=== PATIENT | male | born 1965 | race Caucasian/White ===

== ENCOUNTER 2019-02-11 04:08 | Outpatient (RCR) | payer BC, SELFPAY ==
[2019-02-11 07:43] LABS: Anion Gap 7.4 mmol/L (3-11); BUN 19 mg/dL (7-18); CO2 27.6 mmol/L (21.0-32.0); CREATININE 1.08 mg/dL (0.70-1.30); Calcium 8.4 mg/dL (8.5-10.1); Calculated LDL 138 mg/dL; Chloride 106 mmol/L (98-107); Cholesterol 208 mg/dL (50-200); Glucose 101 mg/dL (70-100); HDL Cholesterol 55 mg/dL (40-60); Sodium 141 mmol/L (136-145); Triglyceride 79 mg/dL (30-150)
[2019-02-12 12:37] LABS: HIV-1/2 Ag & Ab Screen Negative (NEGAT)
[2019-02-14 11:18] LABS: PSA, Screening 1.7 ng/ml (0-3.5)
== END 2019-03-02 23:59 | disposition home or self-care (01) ==
LOC: INF 04:08
PROVIDERS: PCP Internal Medicine; Visit Provider Internal Medicine
DX: Z00.00 Encounter for general adult medical examination without abnormal findings (principal); Z11.4 Encounter for screening for human immunodeficiency virus [HIV]; Z12.5 Encounter for screening for malignant neoplasm of prostate
CPT/HCPCS: 36415; 80048; 80061; 83721; 84153; 87389; 86702

== ENCOUNTER 2022-02-19 06:41 | Outpatient (RCR) | payer OTHER, SELFPAY ==
--- OUTSIDE RECORDS SUMMARY | 2022-02-19 06:44 | XMS_ITS | Encounter Summary ---
:1965 Author Organization [facility] Address [address] [place] [address] Care Team Providers Name Role Phone Zuleima Malone MD Primary Care Provider [phone] Reason for Visit Reason Onset Date Comments Results 02/18/2019 Encounter Details Date Type Department Care Team Description 02/18/2019 Orders Only [facility] Susan, Screening for HIV (human immunodeficiency virus); Adult Primary Care - BUSTER Gardner Screeni ng for prostate cancer; Nir Encounter for preventive hea lt examination [address] [place] [address] Social History Tobacco Use Types Packs/Day Years Used Date Never Smoker Smokeless Tobacco: Former User Chew Q uit: 2008 Alcohol Use Standard Drinks/Week Comments Yes 0 (1 standard drink = 0.6 oz pure alcoho l) less than one a week Alcohol Habits Answer Date Recorded How often do you have a drink containing alcohol? Monthly or less 02/02/2019 How many drinks containing alcohol do you have on 1 or 2 02/02/2019 a typical day when you are drinking? How often do you have six or more drinks on one Never 02/02/2019 occasion? Comment: less than one a week 02/02/2019 Financial Resource Strain Answer Date Recorded How hard is it for you to pay for the very basics like Not h harjeet at all 02/12/2022 food, housing, medical care, and heating? Food Insecurity Answer Date Recorded Within the past 12 months, you worried that your food would Never true 02/12/2022 run out before you got money to buy more. Within the past 12 months, the food you bought just didn't N ever true 02/12/2022 last and you didn't have money to get more. Transportation Needs Answer Date Recorded In the past 12 months, has lack of transportation kept you f rom No 02/12/2022 medical appointments or from getting medications? In the past 12 months, has lack of transportation kept you f rom No 02/12/2022 meetings, work, or getting things needed for daily living? Housing Stability Answer Date Recorded In the last 12 months, was there a time when you were not ab le No 02/12/2022 to pay the mortgage or rent on time? In the last 12 months, how many places have you lived? 1 02/12/2022 In the last 12 months, was there a time when you did not hav e a No 02/12/[address] or slept in a correction (including now)? Sex Assigned at Date Recorded Male 08/28/2021 15:55 EST documented as of this encounter Functional Status Cognitive Status Response Date of Assessment Because of a physical, mental, or emotional condition, No 02/02/2019 does this person have serious difficulty concentrating, remembering, or making decisions? documented as of this encounter Progress Notes Kendra Davis LPN - 02/18/2019 1412 EDT Enter/edit documented in this encounter Plan of Treatment Upcoming Encounters Date Type Specialty Care Team Description 02/20/2022 Office Visit General Internal Medicine Zuleima Malone MD [address] [place] [phone] (Wo rk) documented as of this encounter Procedures Procedure Name Priority Date/Time Associated Diagnosis Comme nts HIV 1/2 ANTIGEN AND Routine 02/11/2019 Results for this ANTIBODY, 4TH procedure are in the GENERATION results section . PSA SCREEN Routine 02/11/2019 Results for thi s procedure are i n the results section . LIPID PROFILE (INCLUDES Routine 02/11/2019 Resu lts for this CHOLESTEROL, procedure are i n the TRIGLYCERIDES, HDL, results section. LDL) BASIC METABOLIC PANEL Routine 02/11/2019 Result s for this (BMP) procedure are i n the results section . documented in this encounter Results LIPID PROFILE (INCLUDES CHOLESTEROL, TRIGLYCERIDES, HDL, LDL) (02/11/2019) Pathologist Sig nature Cholesterol, External 208 [facility] Triglycerides, 79 [facility] HDL, External 55 [facility] LDL, External 138 [facility] Chol/HDL Ratio, [facility] Fasting?, External [facility] Specimen Blood specimen (specimen) Performing Organization Address [facility] Phon e Number [facility] PSA SCREEN (02/11/2019) Pathologist Sig nature PSA, External 1.7 [facility] Specimen Blood specimen (specimen) Performing Organization Address [facility] Phon e Number [facility] HIV 1/2 ANTIGEN AND ANTIBODY, 4TH GENERATION (02/11/2019) Pathologist Sig nature Hiv Ab, External Negative [facility] Specimen Blood specimen (specimen) Performing Organization Address [facility] Phon e Number [facility] BASIC METABOLIC PANEL (BMP) (02/11/2019) Pathologist Sig nature GFR, Calculated, >60 [facility] Glucose, Serum, 101 [facility] Calculated Calcium, [facility] BUN, External 19 [facility] Calcium, External 8.4 [facility] Chloride, External 106 [facility] CO2, External 27.6 [facility] Creatinine, External 1.08 [facility] Fasting?, External [facility] Potassium, External 4.0 [facility] Sodium, External 141 [facility] Specimen Blood specimen (specimen) Performing Organization Address [facility] Phon e Number [facility] documented in this encounter Visit Diagnoses Diagnosis Screening for HIV (human immunodeficienc y virus) Special screening examination for other specified viral diseases Screening for prostate cancer Special screening for malignant neoplasm of prostate Encounter for preventive health examinat ion Routine general medical examination at a health care facility documented in this encounter Care Teams Director News Relationship Specialty Start Date End Date Zuleima Malone MD PCP - General 09/06/[address] [place] [phone] documented as of this encounter
--- OUTSIDE RECORDS SUMMARY | 2022-02-19 06:44 | XMS_ITS | Encounter Summary ---
:1965 Author Organization [facility] Address [address] [place] [address] Care Team Providers Name Role Phone Zuleima Malone MD Primary Care Provider [phone] Reason for Referral Laboratory Services (Routine) - New Request Specialty Diagnoses / Procedures Referred By Contact Refer red To Contact Diagnoses Screening for prostate cancer Zuleima Malone MD Procedures PSA SCREEN [address] [place] [address] Referral ID Status Reason Start Date Expiration Date Visits V isits Requested Authorized [id number] New Request 02/02/2019 1 1 aboratory Services (Routine) - New Request Specialty Diagnoses / Procedures Referred By Contact Refer red To Contact Diagnoses Screening for HIV (human immunodeficiency virus) Zuleima Malone, Procedures HIV 1/2 ANTIGEN AND ANTIBODY, 4TH GENERATION MD [address] [place] [address] Referral ID Status Reason Start Date Expiration Date Visits V isits Requested Authorized [id number] New Request 02/02/2019 1 1 aboratory Services (Routine) - New Request Specialty Diagnoses / Procedures Referred By Contact Refer red To Contact Diagnoses Encounter for preventive health examination Zuleima Malone MD Procedures BASIC METABOLIC PANEL (BMP) [address] [place] [address] Referral ID Status Reason Start Date Expiration Date Visits V isits Requested Authorized [id number] New Request 02/02/2019 1 1 aboratory Services (Routine) - New Request Specialty Diagnoses / Procedures Referred By Contact Refer red To Contact Diagnoses Encounter for preventive health examination Zuleima Malone MD Procedures LIPID PROFILE (INCLUDES CHOLESTEROL, TRIGLYCERIDES, HDL, LDL) [address] [place] [address] Referral ID Status Reason Start Date Expiration Date Visits V isits Requested Authorized [id number] New Request 02/02/2019 1 1 Reason for Visit Reason Comments New Patient Visit Encounter Details Date Type Department Care Team Description 02/02/2019 Office Visit [facility] Zuleima Malone Need for owjbfsgvlb-zsmdsoe-imlfsehii (Tdap) vaccine (Primary Dx); Adult Primary Care - MD Joy Encounter for preventive health examinat ion; [address] Screening for HIV (human imm unodeficiency virus); [address] [place] [address] Screening for prostate cancer [place], [place] [address] [place] [address] [phone] Social History Tobacco Use Types Packs/Day Years Used Date Never Smoker Smokeless Tobacco: Former User Chew Q uit: 2008 Tobacco Cessation: Counseling Given: No Alcohol Use Standard Drinks/Week Comments Yes 0 [...] place to sleep or slept in a half-way (including now)? Sex Assigned at Date Recorded Male 08/28/2021 15:55 EST documented as of this encounter Last Filed Vital Signs Vital Sign Reading Time Taken Comments Blood Pressure 123/69 02/02/2019 1325 EDT Pulse 66 02/02/2019 1325 EDT Temperature 36.6 ??C (97.8 ??F) 02/02/2019 1325 EDT Respiratory Rate 12 02/02/2019 1325 EDT Oxygen Saturation - - Inhaled Oxygen Concentration - - Weight 89.3 kg (196 lb 12.8 oz) 02/02/2019 1325 EDT Height 182.9 cm (6') 02/02/2019 1325 EDT Body Mass Index 26.69 02/02/2019 1325 EDT documented in this encounter Functional Status Cognitive Status Response Date of Assessment Because of a physical, mental, or emotional condition, No 02/02/2019 does this person have serious difficulty concentrating, remembering, or making decisions? documented as of this encounter Patient Instructions Patient InstructionsZuleima Malone MD, - 02/02/2019 13:15 EDT Let me know about referral for colonoscopy Fasting blood work Shingles vaccine at the pharmacy Follow-up in two years documented in this encounter Progress Notes Zuleima Malone MD, MD - 02/02/2019 1315 EDT Male Adult Preventative Care Visit Patient ID: Ousmane Hutson is an 53 y.o. male. Subjective: HISTORY OF PRESENT ILLNESS: Here for to establish care. Patient profile: he is with three children and lives in [place], [place]. He works in sales at [employer]. He does not smoke and does not drink alcohol regularly. He gets physical activity at work. He has not particular problems to report today. He has no significant past medical history and has never had any surgery. Social History Tobacco Use ??? Smoking status: Never Smoker ??? Smokeless tobacco: Former User Types: Chew Substance Use Topics ??? Alcohol use: Yes Frequency: Monthly or less Drinks per session: 1 or 2 Binge frequency: Never ??? Drug use: Not on file No family history on file. No Known Allergies Current Outpatient Medications: Multivitamins with Minerals tablet tablet TURMERIC ORAL VITAMIN B COMPLEX ORAL No current facility-administered medications for this visit. Review of Systems Constitutional: Negative for chills, diaphoresis, fever and malaise/fatigue. Eyes: Negative for blurred vision and double vision. Respiratory: Negative for cough and shortness of breath. Cardiovascular: Negative for chest pain and palpitations. Gastrointestinal: Negative for abdominal pain, blood in stool, diarrhea, heartburn, melena and nausea. Genitourinary: Negative for dysuria and hematuria. Musculoskeletal: Negative for joint pain. Skin: Negative for rash. Neurological: Negative for dizziness and headaches. Psychiatric/Behavioral: Negative for depression. Objective: BP 123/69 Pulse 66 Temp 36.6 ??C (97.8 ??F) (Tympanic) Resp 12 Ht 182.9 cm (72) Wt 89.3 kg (196 lb 12.8 oz) BMI 26.69 kg/m?? Body mass index is 26.69 kg/m??. Physical Exam General: well-developed, well-nourished male HEENT: oral mucosa and pharynx moist and without lesions. Tympanic membranes visualized and with an intact light reflex. Sclerae clear and non-icteric. Neck: no lymphadenopathy or thyromegaly Lungs: clear in all lung sargent Cardiac: regular and without murmur or gallop Axillary: no lymphadenopathy Abdomen: soft, non-tender, no masses. No hepatomegaly or abdominal bruit. : Normal sexual development. Rectal: normal rectal tone. Prostate is without nodules. Extremities: no cyanosis or edema Skin: no rashes Assessment: Very healthy 53 year old male here for a wellness visit and to establish care. He is due for a Tdap vaccine: given today. He will also be eligible for a shingles vaccine when it becomes available. He has never had a colonoscopy. He would prefer to have this done at [facility] but will talk this over with his to choose a provider Fasting blood work ordered for lipids, PSA, and lipids. Plan: As above Follow-up in two years for an HME or as needed. References: USPTF Level A & B Recommendations List USPTF Adult Recommendations USPTF Breast Cancer Screening USPTF Cervical Cancer Screening USPTF Colorectal Cancer Screening CDC Adult Immunizations 2010 CDC 7-18 Years Immunizations 2010 AA Clinical Recommendations documented in this encounter Plan of Treatment Upcoming Encounters Date Type Specialty Care Team Description 02/20/2022 Office Visit General Internal Medicine Zuleima Malone MD [address] [place] [phone] (Wo rk) documented as of this encounter Visit Diagnoses Diagnosis Need for sbpcwpanrm-ugciaoo-wcfdmyklo (T dap) vaccine - Primary Need for prophylactic vaccination with c ombined ktdtmnngyh-lekxxkd-vdsoxeovj (DTP) vaccine Encounter for preventive health examinat ion Routine general medical examination at a health care facility Screening for HIV (human immunodeficienc y virus) Special screening examination for other specified viral diseases Screening for prostate cancer Special screening for malignant neoplasm of prostate documented in this encounter Historical Medications This list may reflect changes made after this encounter. Medication Sig Dispensed Refills Start Date End Date VITAMIN B COMPLEX ORAL Take by mouth. 0 TURMERIC ORAL Take by mouth. 0 Multivitamins with Minerals Take 1 Tab by mouth 0 tablet tablet daily. added in this encounter Orders Lab Orders Without Results Count Last Ordered Date st Ordered Date BASIC METABOLIC PANEL (BMP) 1 02/02/2019 HIV 1/2 ANTIGEN AND ANTIBODY, 4TH 1 02/02/2019 GENERATION LIPID PROFILE (INCLUDES CHOLESTEROL, 02/02/2019 TRIGLYCERIDES, HDL, LDL) PSA SCREEN 02/02/2019 Immunization/Injection Count Last Ordered Date First O rdered Date TDAP VACCINE =>7YO IM 1 02/02/2019 documented in this encounter Care Teams Reprint Sorter Relationship Specialty Start Date End Date Zuleima Malone MD PCP - General 09/06/[address] [place] [phone] documented as of this encounter
--- OUTSIDE RECORDS SUMMARY | 2022-02-19 06:44 | XMS_ITS | Encounter Summary ---
:1965 Author Organization [facility] Address [address] [place] [address] Care Team Providers Name Role Phone Zuleima Malone MD Primary Care Provider [phone] Reason for Visit Reason Onset Date Comments Appointment Related 01/27/2022 Encounter Details Date Type Department Care Team Description 01/27/2022 Telephone [facility] Adult Zuleima Malone Olivia ointment Related Primary Care - Carlos Hamilton MD [address] [facility] [address] [place] [address] [place], [place] [phone] (Wo rk) Social History Tobacco Use Types Packs/Day Years [...] place to sleep or slept in a skilled nursing (including now)? Sex Assigned at Date Recorded Male 08/28/2021 15:55 EST documented as of this encounter Functional Status Cognitive Status Response Date of Assessment Because of a physical, mental, or emotional condition, No 02/02/2019 does this person have serious difficulty concentrating, remembering, or making decisions? documented as of this encounter Miscellaneous Notes Telephone Encounter - Isabela Go - 01/27/2022 1608 EDT Lab orders for: HEP C; CMP; Lipid Profile; PSA faxed to [facility] per patient request. 01/27/2022. documented in this encounter Plan of Treatment Upcoming Encounters Date Type Specialty Care Team Description 02/20/2022 Office Visit General Internal Medicine Zuleima Malone MD [address] [place] [phone] (Wo rk) documented as of this encounter Visit Diagnoses Not on filedocumented in this encounter Care Teams Ginner Relationship Specialty Start Date End Date Zuleima Malone MD PCP - General 09/06/18 [address] [place] [phone] documented as of this encounter
--- OUTSIDE RECORDS SUMMARY | 2022-02-19 06:44 | XMS_ITS | Encounter Summary ---
:1965 Author Organization [facility] Address [address] [place] [address] Care Team Providers Name Role Phone Zuleima Malone MD Primary Care Provider [phone] Reason for Visit Reason Onset Date Comments Labs Only 01/24/2022 Encounter Details Date Type Department Care Team Description 01/24/2022 Orders Only [facility] Zuleima Malone Encounter for preventive care (Primary Dx); Adult Primary Care - MD Joy Prostate cancer screening; [place] [address] [facility] for hepatitis C sc reening test for low risk patient [address] [place] [address] [place], [place] [phone] Social History Tobacco Use Types Packs/Day [...] place to sleep or slept in a care home (including now)? Sex Assigned at Date Recorded Male 08/28/2021 15:55 EST documented as of this encounter Functional Status Cognitive Status Response Date of Assessment Because of a physical, mental, or emotional condition, No 02/02/2019 does this person have serious difficulty concentrating, remembering, or making decisions? documented as of this encounter Plan of Treatment Upcoming Encounters Date Type Specialty Care Team Description 02/20/2022 Office Visit General Internal Medicine Zuleima Malone MD [address] [place] [phone] (Wo rk) Scheduled Orders Name Type Priority Associated Diagnoses Order S chedule LIPID PROFILE (INCLUDES Lab Routine Encounter for Exp ected: 01/27/2022 CHOLESTEROL, TRIGLYCERIDES, preventive ca re (Approximate), HDL, LDL) Expires: 2022 COMPREHENSIVE METABOLIC Lab Routine Encounter for Exp ected: 01/27/2022 PANEL (CMP) preventive care (Approximate ), Expires: 2022 PSA SCREEN Lab Routine Prostate cancer Expected: screening (Approximate), Expires: 2022 HEPATITIS C AB W REFLEX TO Lab Routine Encounter for hepatitis Expected: 01/27/2022 HCV RNA BY PCR C screening test for (Appr oximate), low risk patient Expires: documented as of this encounter Visit Diagnoses Diagnosis Encounter for preventive care - Primary Prostate cancer screening Special screening for malignant neoplasm of prostate Encounter for hepatitis C screening test for low risk patient documented in this encounter Care Teams Video Camera Operator Relationship Specialty Start Date End Date Zuleima Malone MD PCP - General 09/06/[address] [place] [phone] documented as of this encounter
--- OUTSIDE RECORDS SUMMARY | 2022-02-19 06:44 | XMS_ITS | Clinical Summary ---
:1965 Author Organization [facility] Address [address] [place] [address] Care Team Providers Name Role Phone Zuleima Malone MD Primary Care Provider [phone] Allergies No known active allergies Medications Medication Sig Dispensed Refills Start Date End Date Status Multivitamins with Take 1 Tab by 0 Active Minerals tablet tablet mouth daily. TURMERIC ORAL Take by mouth. 0 A ctive VITAMIN B COMPLEX ORAL Take by mouth. 0 Active Active Problems No known active problems Encounters Date Type Specialty Care Team Description 01/27/2022 Telephone General Internal Zuleima Malone Appointment Related Nader Hamilton MD 01/27/2022 Telephone General Internal Zuleima Malone Appointment Related Nader Hamilton MD 01/24/2022 Orders Only General Internal Zuleima Malone Encounter f or preventive care (Primary Dx); Medicine MD Joy Prostate cance r screening; Encounter for h epatitis C screening test for low risk patient from Last 3 Months Immunizations Name Administration Dates Next Due Tdap Vaccine =>7YO IM 02/02/2019 Medical History Medical History Date Comments Childhood asthma Family History Medical History Relation Name Comments Coronary Artery Disease Father at age 75 a few months after CABG Dementia Mother Lewy Dementia, d eveloped around age 75 No Known Sister Kendra Relation Name Status Comments Father Mother Alive Sister Kendra Alive Social History Tobacco Use Types Packs/Day Years [...] place to sleep or slept in a detention (including now)? Sex Assigned at Date Recorded Male 08/28/2021 15:55 EST Last Filed Vital Signs Vital Sign Reading [...] Body Mass Index 26.69 02/02/2019 1325 EDT Plan of Treatment Upcoming Encounters Date Type Specialty Care Team Description 02/20/2022 Office Visit General Internal Medicine Zuleima Malone MD [address] [place] [phone] (Wo rk) Health Maintenance Due Date Last Done Comments Hepatitis C Screen 1965 COVID-19 Vaccine (#1) 03/15/1965 Advance Directive 1982 Barium Enema (Colon Cancer Screening) 2009 Colonoscopy (Colon Cancer Screening) 2009 Colorectal Cancer Screening 2009 Fecal Blood Test (Colon Cancer Screening) 2009 Fecal DNA (Colon Cancer Screening) 2009 Sigmoidoscopy (Colon Cancer Screening) 2009 Shingles Immunization (1 of 2) 2014 Preventive Care Visit 02/02/2021 02/02/2019 Influenza Immunization (Adult) (#1) 2022 Behavioral Health Screen 02/12/2023 02/12/2022, 02/02/2019 Social Determinants Of Health (SDOH) 02/12/2023 02/12/2022, 02/02/2019 Lipid Profile Screening (Cholesterol) 02/12/2024 02/11/2019 Tetanus (Adult) Immunization 02/02/2029 02/02/2019 Pertussis (Adult) Immunization Completed 02/02/2019 HIV Screening Completed 02/11/2019 Care Teams Customer Account Technician Relationship Specialty Start Date End Date Zuleima Malone MD PCP - General 09/06/[address] [place] [phone]
--- OUTSIDE RECORDS SUMMARY | 2022-02-19 06:44 | XMS_ITS | Encounter Summary ---
:[address] [facility] Address [address] [place] [address] Care Team Providers Name Role Phone Zuleima Malone MD Primary Care Provider [phone] Reason for Visit Reason Onset Date Comments Appointment Related 01/27/2022 Encounter Details Date Type Department Care Team Description 01/27/2022 Telephone [facility] Adult Zuleima Malone Olivia ointment Related Primary Care - Carlos Hamilton MD 353 [facility] [address] [place] [address] [place], [place] [phone] (Wo rk) Social History Tobacco Use [...] place to sleep or slept in a alf (including now)? Sex Assigned at Date Recorded Male 08/28/2021 15:55 EST documented as of this encounter Functional Status Cognitive Status Response Date of Assessment Because of a physical, mental, or emotional condition, No 02/02/2019 does this person have serious difficulty concentrating, remembering, or making decisions? documented as of this encounter Miscellaneous Notes Telephone Encounter - Isabela Go - 01/27/2022 2336 EDT Confirmed upcoming appointment with patient on 02/20/2022 at 3:[address] Malone. Asked patientto have fasting labs done prior to the appointment. Please fast for at least 8 hours. You can continue to take your medications, drink plenty of water, and you may have black coffee with no cream or sugar. Patient asked for lab orders to be faxed to [facility] - fax # [phone]. documented in this encounter Plan of Treatment Upcoming Encounters Date Type Specialty Care Team Description 02/20/2022 Office Visit General Internal Medicine Zuleima Malone MD [address] [place] [phone] (Wo rk) documented as of this encounter Visit Diagnoses Not on filedocumented in this encounter Care Teams Padded Products Finisher Relationship Specialty Start Date End Date Zuleima Malone MD PCP - General 09/06/[address] [place] [phone] documented as of this encounter
[2022-02-19 07:13] LABS: ALT 31 U/L (16-63); AST 18 U/L (15-37); Albumin 3.8 g/dL (3.4-5.0); Alkaline Phosphatase 70 U/L (46-116); Anion Gap 6.2 mmol/L (3-11); BUN 27 mg/dL (7-18); Bilirubin, Total 0.5 mg/dL (0.2-1.0); CO2 28.8 mmol/L (21.0-32.0); CREATININE 1.2 mg/dL (0.70-1.30); Calcium 8.1 mg/dL (8.5-10.1); Calculated LDL 119 mg/dL (<100); Chloride 102 mmol/L (98-107); Cholesterol 197 mg/dL (<200); Glucose 90 mg/dL (74-106); HDL Cholesterol 55 mg/dL (40-60); Sodium 137 mmol/L (136-145); Total Protein 7.5 g/dL (6.4-8.2); Triglyceride 117 mg/dL (<150)
[2022-02-19 18:22] LABS: PSA, Screening 2.3 ng/mL (<=3.5)
[2022-02-20 09:39] LABS: Hepatitis C Ab w Rflx HCV PCR Negative (Negative)
[2022-02-21 10:12] LABS: TSH (W/Ref FT4) 1.19 uIU/mL (0.36-3.74)
[2022-02-24 06:10] LABS: Vitamin D 25 Total 38.5 ng/mL (30-100)
== END 2022-03-02 23:59 | disposition home or self-care (01) ==
LOC: INF 06:41
PROVIDERS: PCP Internal Medicine; Visit Provider Internal Medicine
DX: Z11.59 Encounter for screening for other viral diseases (principal); Z00.00 Encounter for general adult medical examination without abnormal findings; Z12.5 Encounter for screening for malignant neoplasm of prostate; E83.51 Hypocalcemia; I49.9 Cardiac arrhythmia, unspecified
CPT/HCPCS: 80053; 80061; 82306; 84153; 86803; 84443

== ENCOUNTER → 2022-03-06 01:43 | Outpatient (CLI) | payer OTHER, SELFPAY ==
--- NOTE | 2022-03-06 15:00 | ETT_ITS ---
APPROVED REPORT Exam: Exercise Treadmill Patient Location: Out-Patient Room/Bed: Stress Nurse: Skylar Garcia RN Ordering Provider:NORA STERN, Contact Number: [phone] BMI: 26.03 Baseline Rhythm: Sinus Rhythm Comment: PVCs Indications: Ventricular bigeminy. Medical History Medical History: Ventricular bigeminy. Cardiac Medications: None Allergies: No known drug allergies Cardiac Risk Factors: Family hx. Previous Cardiac Procedures: None. Pretest Chest Pain Characteristics: None Exercise History: Indeterminate Physical Disabilities: None Lung Sounds: Clear to auscultation Heart Sounds: Irregular Stress Test Details Test: Exercise stress testing was performed using a Benji protocol. Rest Stress HR Resting HR Supine: 65 bpm Max Heart Rate (APMHR): 163 bpm Resting HR Standin bpm Target HR (85% APMHR): 138 bpm Max HR Achieved: 141 bpm % of APMHR: 86 Recovery HR: 83 bpm HR response to stress: Normal HR response to stress Comment: Frequent PVCs BP Resting BP Supine: 128/80 mmHg Resting BP Standin/68 mmHg Max BP: 168/80 mmHg Recovery BP: 138/78 mmHg BP response to stress: Normal blood pressure response to stress. ECG Resting ECG: Sinus Rhythm, Ectopy: PVCs Stress ECG: Sinus Tachycardia ST Change: No significant ST segment changes noted Arrhythmia: NSVT 3 beat run, ventricular bigeminy, VPC's Recovery ECG: Sinus Rhythm Recovery ST Change: No significant ST segment changes noted Recovery Arrhythmia: PVCs, ventricular bigeminy. Clinical Reason for Termination: Target HR Achieved Stress Symptoms: General Fatigue Exercise duration: 11 min01 sec Highest Stage Reached: Stage 4: 4.2 mph at 16% grade. Exercise capacity: 13.48 METs Angina Score: None Rate Pressure Product: [id number] Stress ECG Conclusion 1. Resting electrocardiogram showed voltage for left ventricular hypertrophy 2. Patient exercised on the Benji protocol and completed a workload of 13.48 METS 3. Normal heart rate and blood pressure response to exercise. The patient achieved 88% of predicted heart rate for age 4. The electrocardiographic portion of the test was negative for myocardial ischemia 5. Premature ventricular contractions were noted, including couplets in late to end exercise, early recovery Stress Test Summary STAGE Time (mins) Speed (mph) Grade (%) HR BP SpO2 SYMPTOMS METS Supine 65 128/80 Standing 75 118/68 1 3 1.7 10 88 128/68 4.5 2 6 2.5 12 98 140/70 7 3 9 3.4 14 125 162/72 10 1 min recovery 114 168/80 3 min recovery 92 168/68 6 min recovery 83 138/78
== END ==
PROVIDERS: PCP Internal Medicine; Visit Provider Internal Medicine
DX: I49.8 Other specified cardiac arrhythmias (principal)
CPT/HCPCS: 93017

== ENCOUNTER 2022-03-17 02:52 | Outpatient (RCR) | payer OTHER, SELFPAY ==
--- NOTE | 2022-03-17 14:45 | HOLTER_ITS ---
APPROVED REPORT Conclusion This is a 48-hour Holter monitor ordered for ventricular bigeminy Predominant rhythm was sinus with an average heart rate of 73. Minimum was 54, maximum 108 There were rare atrial premature beats, no atrial fibrillation, no supraventricular tachycardia Frequent ventricular ectopic beats were seen. These comprised 11.2% of total beats. There were rare couplets, very rare triplets. There was one 6 beat run of nonsustained ventricular tachycardia There were no apparent patient symptoms
== END 2022-04-02 23:59 | disposition home or self-care (01) ==
LOC: RT 02:52
PROVIDERS: PCP Internal Medicine; Visit Provider Internal Medicine
DX: I49.8 Other specified cardiac arrhythmias (principal); I47.2 Ventricular tachycardia; I49.49 Other premature depolarization
CPT/HCPCS: 93225; 93226

== ENCOUNTER → 2022-03-25 02:21 | Outpatient (CLI) | payer OTHER, SELFPAY ==
--- NOTE | 2022-03-25 17:00 | DI.US_ITS ---
APPROVED REPORT EXAM: Comprehensive 2D, Doppler, and color-flow Echocardiogram Patient Location: Out-Patient Yarn Examiner: Madelin Medina RDCS (AE) Indications: Ventricular Bigeminy Other Information Study Quality: Adequate Conclusion Normal left ventricular wall thickness and chamber size. Estimated ejection fraction is 60%. Wall m otion is normal Normal right ventricular size and systolic function Both atria are normal in size No structural or hemodynamically significant valvular disease Estimated right ventricular systolic pressure is 26 mmHg Wall motion Left Ventricle Left ventricle is borderline dilated. The left ventricular systolic function is normal. The left vent ricular ejection fraction is within the normal range. There is normal left ventricular wall thickness . There is normal LV segmental wall motion. There is no ventricular septal defect visualized. LVEF is 60%. Right Ventricle The right ventricle is normal size. The right ventricular systolic function is normal. The RVSP is 25 .7mmHg. Atria The left atrium size is normal. The right atrium size is normal. The interatrial septum is intact wit h no evidence for an atrial septal defect. Aortic Valve The aortic valve is normal in structure. There is no aortic valvular stenosis. No aortic regurgitatio n is present. Mitral Valve The mitral valve is normal in structure. No evidence of mitral valve stenosis. Mild mitral regurgitat ion. Tricuspid Valve The tricuspid valve is normal in structure. There is no tricuspid valve stenosis. Mild tricuspid regu rgitation. Pulmonic Valve The pulmonary valve is normal in structure. There is no pulmonic valvular stenosis. Trace pulmonic re gurgitation. Great Vessels The aortic root is normal in size. The ascending aorta is mildly dilated. Aortic arch is normal in ca liber. IVC is normal in size and collapses >50% with inspiration. Pericardium There is no pericardial effusion. 2D Dimensions IVSD d PLAX 0.76 cm M: 0.6-1.2 LV Vol A2C d MOD 150.9 mL LVPW d PLAX 0.80 cm M: 0.6 - 1.2 LV Vol A4C d MOD 185.2 mL LVID d PLAX 5.86 cm M: 4.2 - 5.8 LA vol/ BSA A2C s A-L 33.9 mL/m2 LVDs 3.85 cm M: 2.5 - 4.0 LA vol/ BSA A4C s A-L 30.8 mL/m2 Ao Root d 3.45 cm M: 3.1 - 3.7 LA Vol/ BSA Biplane s A-L 33.5 mL/m2 RA Area A4C 17.27 cm2 LA Area A4C s MOD 20.19 cm2 RA Vol/ BSA A4C s A-L 21.9 mL/m2 LA Area A2C s MOD 21.97 cm2 Ao Asc Diam d 3.52 cm M: 2.6 - 3.4 LV EF A4C MOD 61.6 % LV EF Teichholz 62.4 % LV EF A2C MOD 61.4 % LVEF (Carr's) 61.86 % M: 52 - 72 LV EF Biplane MOD 61.9 % LV Volume 125.94 mL M: 62 - 150 SV 106.04 mL LV Volume Index 59.12 mL/m2 M: 34 - 74 SV Index 49.78 mL/m2 LV Vol Biplane MOD 171.4 mL FS 34.20 % M-Mode TAPSE 2.90 cm (M/F) >1.7 LV Diastology MV E' medial 0.078 (>0.07 m/s) E/A Ratio 1.1 LV E/e MED 9.00 (<14) MV E Vmax 0.71 (0.4-1.3 m/s) MV E' lateral 0.049 (>0.1 m/s) MV A Vmax 0.65 (0.4-1.3 m/s) LV E/e LAT 14.40 (<14) MV E/A Ratio 1.07 MV E/E' medial 9.02 MV E/E' lateral 14.43 Aortic Valve LVOT Area 3.84 cm2 AoV Area Vmax 3.60 cm2 LVOT Vmax 1.25 m/s AoV Area/ BSA (Vmax) 1.69 cm2/m2 LVOT Mean Félix. 0.84 m/s EMETERIO Mean Félix. 3.42 cm2 LVOT Peak Grad 6.2 mmHg EMETERIO Mean Félix. Index 1.61 cm2/m2 LVOT Mean Grad 3.3 mmHg LVOT VTI 0.247 m LVOT Diam s 2.20 cm AoV Vmax 1.33 m/s Velocity Ratio 0.93 AoV Mean Félix. 0.94 m/s AoV Peak Grad 7.1 mmHg LVOT SV 94.59 mL AoV Mean Grad 4.0 mmHg AoV VTI 0.276 m AoV Area VTI 3.43 cm2 AoV Area/ BSA (VTI) 1.61 cm/m2 Mitral Valve MV DT 228 (160-240 msec) MV PHT 66 msec MV Area PHT 3.32 cm2 MV VTI 0.222 m MV Area VTI 4.25 (4.0-6.0 cm2) Pulmonary Valve PV Vmax 1.05 (0.5-1.5 m/s) RVOT Peak Gr. 2.10 mmHg PV Peak Grad 4.4 mmHg RVOT Mean Gr. 1.00 mmHg PV Mean Grad 2.4 mmHg RVOT VTI 0.136 m PV VTI 0.205 m RVOT Vmax 0.72 m/s Tricuspid Valve TR Peak Grad 22.7 mmHg TR Vmax 2.38 m/s RA Pressure 3.00 mmHg RVSP (TR) 25.7 mmHg
== END ==
PROVIDERS: PCP Internal Medicine; Visit Provider Internal Medicine
DX: I49.8 Other specified cardiac arrhythmias (principal)
CPT/HCPCS: 93306

== ENCOUNTER 2023-09-02 06:43 | Outpatient (RCR) | payer OTHER, SELFPAY ==
[2023-09-02 07:32] LABS: ALT 31 U/L (16-63); AST 21 U/L (15-37); Albumin 3.8 g/dL (3.4-5.0); Alkaline Phosphatase 68 U/L (46-116); Anion Gap 5.6 mmol/L (3-11); BUN 20 mg/dL (7-18); Bilirubin, Total 0.5 mg/dL (0.2-1.0); CO2 29.4 mmol/L (21.0-32.0); CREATININE 1.3 mg/dL (0.70-1.30); Calcium 8.4 mg/dL (8.5-10.1); Calculated LDL 126 mg/dL (<100); Chloride 106 mmol/L (98-107); Cholesterol 209 mg/dL (<200); Estimated GFR 63.68 (mL/min/1.73m2); Glucose 94 mg/dL (74-106); HDL Cholesterol 60 mg/dL (40-60); Potassium 4.3 mmol/L (3.5-5.1); Sodium 141 mmol/L (136-145); Total Protein 8.2 g/dL (6.4-8.2); Triglyceride 115 mg/dL (<150)
[2023-09-02 17:58] LABS: PSA, Screening 2.5 ng/mL (<=3.5)
== END 2023-09-02 23:59 | disposition home or self-care (01) ==
LOC: INF 06:43
PROVIDERS: PCP Internal Medicine; Visit Provider Internal Medicine
DX: Z12.5 Encounter for screening for malignant neoplasm of prostate (principal)
CPT/HCPCS: 80053; 80061; 84153

== ENCOUNTER 2023-11-19 06:14 | Day surgery (SDC) | payer OTHER, SELFPAY ==
--- NOTE | 2023-11-18 17:48 | W.PM.DSUDISC ---
Date of service: 11/19/23 Time of Service: 07:53 Discharge Plan Disposition Patient Disposition: Home Condition: Good Discharge Details Reason For Visit: screening colonscopy Attending Provider: Nghia Kruse Primary Care Provider: Zuleima Malone Home Meds and New Rx's Prescriptions: Continued cholecalciferol (vitamin D3) 25 mcg (1,000 unit) capsule 25 mcg PO DAILY multivitamin with minerals Capsule 1 cap PO DAILY vitamin B complex Tablet 1 tab PO DAILY omega 8-hok-awi-fish oil [Fish Oil] 1,000 mg (120 mg-180 mg) capsule 1 cap PO DAILY Discharge Instructions Instructions: Diverticulosis (GEN), Diverticulosis Diet (GEN) Additional Instructions: Ousmane, we were able to complete your colonoscopy today without any difficulty. Your prep was excellent, and I could see everything just fine. I did not see any signs of tumors, polyps, or anything else worrisome. Incidentally, you do have some sigmoid diverticulosis. Diverticula are little weak spots in the muscular part of the colon wall. They typically accumulate as we age. They can get infected and inflamed. When that happens, patients typically have quite a bit of pain usually on the left side of their abdomen or down across the middle. This is often times treated with antibiotics. Hopefully, your will never bother you. I have attached a little bit of information here regarding typical approaches to diverticular disease. Otherwise, with a negative screening colonoscopy, you do not need another one until 10 years. 1. If tolerated, consume a soft, low fiber diet for 1-2 days. 2[address] Do not drive, drink alcohol, operate machinery, make critical decisions, or do activities that require coordination or balance for 24 hours. 3. Because air was put into your colon during the procedure, expelling air from your rectum (passing gas or farting) is normal. 4. You may not have a bowel movement for 1-3 days because of the colonoscopy prep. This is normal. 5. Go directly to the emergency room if you notice any of the following: Develop chills (warm to touch), or if you have a thermometer and your temperature is above 101 Difficulty breathing or difficultly swallowing Persistent vomiting Severe abdominal pain, other than gas cramps Severe chest pain Black, tarry stools Any bleeding ? exceeding one tablespoon 6. Call your physician if the site where your intravenous was started becomes red, swollen, painful, and warm to touch. 7. Your physician has reviewed your pre-procedure medications. Please continue to take those medications as previously ordered. You will be given specific information/education regarding any changes to your medications before leaving. Activity:: Activity as Tolerated Diet:: As Tolerated Discharge Orders Discharge Orders: Discharge Order (Routine); Ordered 11/18/23 Ordered By: Nghia Kruse DS: Diagnosis Discharge Diagnosis (1) Encounter for screening colonoscopy: Status: Acute Asessment and Plan: Diverticulosis, otherwise negative screening colonoscopy, recommend follow-up in 10 years
--- NOTE | 2023-11-18 17:51 | W.COLOREPORT ---
Date of service: 11/19/23 Time of Service: 07:54 Colonoscopy Report Date of procedure: 11/19/23 Pre-op diagnosis general: screening colonoscopy Post-op diagnosis procedure note: other (Diverticulosis) Procedure: Colonoscopy Surgeon: Nghia Kruse Anesthesia Type: General:No Airway Pathology: none sent Complications: None Disposition: same day Indications: Ousmane is a 58 year old man who needs a screening colonscopy Prep: Miralax/Dulcolax Procedure Start Time: 07:34 Procedure End Time: 07:48 Retraction Time: 6 Findings: Sigmoid diverticulosis Procedure Description: After the induction of monitored anesthetic care, and with the patient in left lateral decubitus position, I began by performing an external anorectal exam.? Perineum and skin were normal, as was the anal verge.? There are some perianal skin tags consistent with fibrosed old hemorrhoids.? Next, I performed a digital rectal exam.? I did not appreciate any abnormal findings.? Next, I advanced a colonoscope into the rectal vault.? I performed retroflexion.? This was normal. Using insufflation, I then advanced the colonoscope beyond the rectal folds and into the sigmoid colon before advancing towards the cecum.? The quality of the prep was outstanding.? The scope was noted to be in the cecum by identification of the ileocecal valve and appendiceal orifice.? I then began withdrawing the colonoscope using repeated irrigation as necessary for full evaluation of the colonic mucosa. There were some occasional sigmoid diverticula. Once the scope was withdrawn to the level of the rectum, great care was taken to examine portions of the rectal folds.? Finally, the scope was withdrawn and the patient was brought to the same-day surgery recovery unit as the anesthetic wore off. ?The findings and instructions were shared with the patient prior to discharge. Agar Bowel Prep Agar Bowel Prep Right Colon: 3 Left Colon: 3 Transverse Colon: 3 Total Score: 9
--- NOTE | 2023-11-18 19:38 | W.ANESPRE ---
General Info Date of Service Date Performed: 11/19/23 Height: 6 ft Weight: 83.915 kg Body Mass Index (BMI): 25.0 Surgical Procedure: Operation Date: 11/19/23 07:35 Proposed Procedure Side Surgeon p Colonoscopy Nghia Kruse MD Meds Allergies and Home Medications Allergies Allergy/AdvReac Type Severity Reaction Status Date / Time No Known Drug Allergies Allergy Unknown . Verified 11/19/23 06:29 Home Medication Medication Instructions Recorded cholecalciferol (vitamin D3) 25 25 mcg PO DAILY 10/27/23 mcg (1,000 unit) capsule multivitamin with minerals 1 cap PO DAILY 10/27/23 vitamin B complex 1 tab PO DAILY 10/27/23 omega 7-hff-lzn-fish oil 1,000 mg 1 cap PO DAILY 11/17/23 (120 mg-180 mg) capsule (Fish Oil) Current Visit Medications: Current Medications Generic Name Dose Route Start Last Admin Trade Name Freq PRN Reason Stop Dose Admin Hyoscyamine Sulfate 0.125 mg 11/18/23 17:52 Hyoscyamine 0.125 Mg Sl/Oral/Chew SL 12/18/23 17:51 DIRECTED PRN Ringer's Solution 1,000 mls @ 80 mls/hr 11/19/23 06:00 IV 12/18/23 23:59 INFUSION VEGA IV Miscellaneous Supplies 1 each 11/19/23 06:00 Iv Access IV 12/18/23 23:59 DIRECTED VEGA Ondansetron HCl 4 mg 11/18/23 17:52 Ondansetron 4 Mg/2 Ml Vial IVP 12/18/23 17:51 Q4H PRN PRN Nausea / Vomiting Sodium Chloride 0 ml 11/19/23 06:00 Normal Saline Flush 10 Ml Syr IV 12/18/23 23:59 PRN PRN Sodium Chloride 0 ml 11/19/23 06:00 Normal Saline 10 Ml Vial IJ 12/18/23 23:59 DIRECTED PRN Sterile Water 0 ml 11/19/23 06:00 Water,Injection,Sterile 10 Ml Vial IJ 12/18/23 23:59 DIRECTED PRN PFSH Active Problems Active Problems: Problem Status Onset Code Encounter for screening colonoscopy Z12.11 Ventricular bigeminy I49.8 Medical History Medical History (Updated 11/18/23 @ 17:48 by Nghia Kruse MD) Former smokeless tobacco use (~2007) History of asthma Tobacco Smoking/Tobacco Use Status: Former Tobacco Use Alcohol Alcohol Intake: current Alcohol intake frequency: a few times a week Substance Use Substance use: Never Substance use type: does not use Vital Signs and Lab Results Vital Signs Most Recent Vital Signs in EMR: Temp Pulse Resp BP Pulse Ox 36.5 C 63 16 138/90 99 11/19/23 06:27 11/19/23 06:27 11/19/23 06:27 11/19/23 06:27 11/19/23 06:27 Lab Results Blood Type / Crossmatch: No Data to Display Complete Blood Count: No Data to Display Complete Metabolic Panel: No Data to Display Liver Function Panel: No Data to Display Coagulation Panel: No Data to Display Cardiac Panel: No Data to Display Arterial Blood Gas: No Data to Display Venous Blood Gas: No Data to Display Pancreas Panel: No Data to Display Thyroid Panel: No Data to Display Infectious Disease: No Data to Display Blood Cultures: No Data to Display Toxicology Panel: No Data to Display Imaging and Studies Imaging and Studies Study information below may be from another EMR and interpreted by another provider. Please see original notes in EMR for more complete details. Stress Test Summary: 03/24: METs 13.48, EKG with LVH. negative for ischemia. PVCs. Echocardiogram Summary: 03/24: LVEF 60%, no sig valvular dz. RVSP 26. Anesthesia Assessment and Plan Anesthesia History Personal History: No History of Anesthesia Complications Family History: No Family History of Anesthesia Complications Exercise Tolerance Exercise Tolerance: Metabolic Equivalents>4 Cardiac & Pulmonary Exam Cardiac Exam: Normal S1/S2 Heart Sounds Pulmonary Exam: Clear Bilateral Breath Sounds Implantable Cardiac Device Does patient have a Pacemaker or an ICD?: No Airway Exam Known Difficult Airway: No Mallampati Class: 3 Mouth Opening: Normal (> 3cm) Thyromental Distance: Greater than 3 cm Neck Range of Motion: Full ROM Neck Circumference: Normal Teeth Condition: Normal Dentition (small chips) ASA Classification ASA Score: ASA 2 Emergency Case?: No NPO Status NPO Status: NPO Clears >2 hours, Solids >8 hours Anesthesia Plan Resuscitation Status: Full Code Anesthesia Technique: General Anesthesia Airway Planned: Natural Airway Monitors Used: Standard Monitors Preoperative Comments:: 58 yo male for colo. Sig PMHx: asthma, occ etoh
[2023-11-19 06:27] VITALS: BP 138/90; PULSE 63; RESP 16; TEMP 36.5; O2SAT 99
[2023-11-19] MEDS: Lactated Ringers 1,000 ML 80 ML IV (06:38)
[2023-11-19 07:08] VITALS: BMI 25.0
[2023-11-19 07:51] VITALS: BP 105/56; PULSE 63; RESP 16; TEMP 36.4; O2SAT 97
[2023-11-19 08:19] VITALS: BP 123/88; PULSE 54; RESP 16; TEMP 36.3; O2SAT 98
--- NOTE | 2023-11-19 08:22 | W.ANESPOSTOP ---
Postoperative Evaluation Date, Time and Location Date Performed: 11/19/23 Time Performed: 07:58 Patient Location: Day Surgery Unit Vital Signs Most Recent Imported Vital Signs: Most Recent Vital Signs Temp Pulse Resp BP Pulse Ox 36.4 C L 63 16 105/56 L 97 11/19/23 07:51 11/19/23 07:51 11/19/23 07:51 11/19/23 07:51 11/19/23 07:51 Pain Score Most Recent Pain Score: Most Recent Pain Score Pain Level 0 11/19/23 07:51 Assessment Mental Status: Awake (Alert & Oriented to Patient Baseline) Airway and Respiratory Function: Patent airway with normal (patient baseline) respiratory exam Cardiovascular Function: Hemodynamically Stable Hydration Status: Adequately Hydrated Nausea & Vomiting: No Nausea or Vomiting Pain: Pt. Denies Any Pain Peripheral Nerve Block: Patient did not receive a nerve block
== END 2023-11-19 08:35 | disposition home or self-care (01) ==
PROVIDERS: PCP Internal Medicine; Visit Provider Surgery
PROC: 0DJD8ZZ Inspection of Lower Intestinal Tract, Via Natural or Artificial Opening Endoscopic (ICD-10-PCS; CPT 45378; principal; 2023-11-19 07:30)
DX: Z12.11 Encounter for screening for malignant neoplasm of colon (principal); K57.30 Diverticulosis of large intestine without perforation or abscess without bleeding
CPT/HCPCS: 45378; J2704

== ENCOUNTER 2024-11-07 07:22 | Outpatient (RCR) | payer OTHER, SELFPAY ==
[2024-11-07 07:50] LABS: ALT 38 U/L (16-63); AST 26 U/L (15-37); Albumin 3.6 g/dL (3.4-5.0); Alkaline Phosphatase 83 U/L (46-116); Anion Gap 8.1 mmol/L (3-11); BUN 23 mg/dL (7-18); Bilirubin, Total 0.6 mg/dL (0.2-1.0); CO2 27.9 mmol/L (21.0-32.0); CREATININE 1.2 mg/dL (0.70-1.30); Calcium 8.9 mg/dL (8.5-10.1); Calculated LDL 113 mg/dL (<100); Chloride 106 mmol/L (98-107); Cholesterol 203 mg/dL (<200); Estimated GFR 69.23 (mL/min/1.73m2); Glucose 90 mg/dL (74-106); HDL Cholesterol 62 mg/dL (>or=40); Potassium 4.3 mmol/L (3.5-5.1); Sodium 142 mmol/L (136-145); Triglyceride 141 mg/dL (<150)
[2024-11-07 19:01] LABS: PSA, Screening 2.4 ng/mL (<=4.5)
== END 2024-11-30 23:59 | disposition home or self-care (01) ==
LOC: INF 07:22
PROVIDERS: PCP Internal Medicine; Visit Provider Internal Medicine
DX: Z00.00 Encounter for general adult medical examination without abnormal findings (principal); Z12.5 Encounter for screening for malignant neoplasm of prostate
CPT/HCPCS: 80053; 80061; 84153

== ENCOUNTER 2024-12-23 00:12 | Outpatient (CLI) | payer OTHER, SELFPAY ==
--- NOTE | 2024-12-23 | DI.US_ITS ---
APPROVED REPORT EXAM: Comprehensive 2D, Doppler, and color-flow Echocardiogram Patient Location: Out-Patient Isolation Washer: Madelin Medina RDCS (AE) Indications: Ventricular bigeminy Other Information Study Quality: Adequate Conclusion Normal left ventricular wall thickness and chamber size. Ejection fraction is 55 to 60%. Wall motio n is normal Normal right ventricular size and function Mildly dilated left atrium. Normal right atrial size There is no structural or hemodynamically significant valvular disease Estimated right ventricular systolic pressure is 22 mmHg Mildly dilated ascending aorta Wall motion Left Ventricle Left ventricle is borderline dilated. The left ventricular systolic function is normal. The left vent ricular ejection fraction is within the normal range. There is normal left ventricular wall thickness . There is normal LV segmental wall motion. There is no ventricular septal defect visualized. LVEF is 56%. Right Ventricle The right ventricle is normal size. The right ventricular systolic function is normal. Atria Left atrium is mildly dilated. The right atrium size is normal. The interatrial septum is intact with no evidence for an atrial septal defect. Aortic Valve The aortic valve is normal in structure. Aortic valve is trileaflet. There is no aortic valvular sten osis. No aortic regurgitation is present. Mitral Valve The mitral valve is normal in structure. No evidence of mitral valve stenosis. Trace mitral regurgita tion. Tricuspid Valve The tricuspid valve is normal in structure. There is no tricuspid valve stenosis. Trace tricuspid reg urgitation. The RVSP is 21.8 mmHg. Pulmonic Valve The pulmonary valve is normal in structure. There is no pulmonic valvular stenosis. There is no pulmo darion valvular regurgitation. Great Vessels The aortic root is normal in size. The ascending aorta is mildly dilated. Aortic arch is not well vis ualized. IVC is normal in size and collapses >50% with inspiration. Pericardium There is no pericardial effusion. 2D Dimensions IVSD d PLAX 0.91 cm M: 0.6-1.2 Ao Root d 3.58 cm M: 3.1 - 3.7 LVPW d PLAX 0.92 cm M: 0.6 - 1.2 Ao Asc Diam d 3.73 cm M: 2.6 - 3.4 LVID d PLAX 5.87 cm M: 4.2 - 5.8 LVDs 4.17 cm M: 2.5 - 4.0 LV EF Teichholz 54.9 % FS 28.96 % LV EDV (Teich) 171.2 mL LV ESV (Teich) 77.2 mL M-Mode TAPSE 2.41 cm (M/F) >1.7 Auto EF LV EDV A4C 225.5 mL LV EDV A2C 237.0 mL LV EDV BP 231.0 mL LV ESV A4C 100.7 mL LV ESV A2C 105.5 mL LV ESV BP 101.9 mL LVEF(%) A4C 55.3 % LVEF(%) A2C 55.5 % LVEF(%) BP 55.9 % LV SV A4C 124.7 ml LV SV A2C 131.5 ml LV SV BP 129.1 ml LV CO A4C 7.9 L/min LV CO A2C 8.2 L/min LV CO BP 8.1 L/min HR A4C 63.61 BPM HR A2C 62.59 BPM LV EDV Index (BP) LA Volume LA Length A4C 5.8 cm LA Length A2C 5.5 cm LA Area A4C s 22.75 cm2 LA Area A2C s 23.75 cm2 LA Vol A4C A-L 76.18 mL LA Vol A2C A-L 86.71 mL LA Vol Biplane A-L 83.0 mL LA Vol/BSA A4C A-L LA Vol/BSA A2C A-L LA Vol/BSA BP A-L 39.7 mL/m2 LA Vol A4C MOD 72.0 mL LA Vol A2C MOD 82.9 mL LA Vol BP MOD 78.9 mL RA Volume RA Area A4C 16.1 cm2 RA ESV A4C (A-L) 42.9mL RA Vol/BSA A4C A-L RA Length A4C 5.1 cm RA ESV A4C (MOD) 40.6mL LV Diastology MV E' medial 0.082 (>0.07 m/s) MV E Vmax 0.62 (0.4-1.3 m/s) MV E/E' MED 7.57 (<14) MV A Vmax 0.80 (0.4-1.3 m/s) MV E' lateral 0.082 (>0.1 m/s) E/A Ratio 0.8 MV E/E' LAT 7.57 (<14) MV E' Average 0.082 m/s MV E/E'(average) 7.57 Aortic Valve AoV Vmax 1.80 m/s LVOT Vmax 1.11 m/s AoV Peak Grad 13.0 mmHg LVOT Peak Grad 5.0 mmHg AoV Area (Vmax) 2.22 cm2 LVOT VTI 0.262 m AoV VTI 0.451 m LVOT Mean Grad 2.7 mmHg AoV Mean Félix. 1.26 m/s LVOT SV 94.00 mL AoV Mean Grad 7.2 mmHg LVOT Diam s 2.10 cm AoV Area (VTI) 2.08 cm2 AV Regurg Peak Gr. 13.01 mmHg Velocity Ratio 0.62 Mitral Valve MV DT 309 (160-240 msec) MV Vmax TIPS 0.82 m/s MV Mean Grad 0.6 (<2mmHg) MV VTI 0.237 m Pulmonary Valve PV Vmax 0.78 (0.5-1.5 m/s) RVOT Vmax 0.58 m/s PV Peak Grad 2.4 mmHg RVOT Peak Gr. 1.4 mmHg PV Mean Félix 0.53 m/s RVOT VTI 0.116 m PV Mean Grad 1.3 mmHg RVOT Mean Gr. 0.8 mmHg Tricuspid Valve RA Pressure 3.00 mmHg TR Vmax 2.17 m/s TV S' 0.16 m/s TR Peak Grad 18.7 mmHg RVSP (TR) 21.8 mmHg
== END 2024-12-23 00:32 ==
LOC: DI 00:12
PROVIDERS: PCP Internal Medicine; Visit Provider Internal Medicine Cardiovascular Disease
DX: I49.8 Other specified cardiac arrhythmias (principal)
CPT/HCPCS: 93306